=== PATIENT | male | born 1985 | race African-American/Black ===

== ENCOUNTER 2022-06-04 20:23 | Emergency (ER) | payer BC, MEDICAID, SELFPAY ==
[2022-06-04] VITALS (27 sets, daily range): BP systolic 100–132; BP diastolic 62–76; PULSE 110–124; RESP 14–16; TEMP 36.4; O2SAT 98–100
--- NOTE | ~2022-06-04 | XR_ITS ---
Left Shoulder Technique: AP and scapular Y views were obtained. Clinical History: Pain Findings: No fracture or dislocation is seen. Osseous alignment is anatomic. The glenohumeral and acr omioclavicular joint spaces are preserved. Soft tissues are unremarkable. Impression: Unremarkable left shoulder radiographs. Reviewed, dictated and finalized at [facility]. Impression: Unremarkable left shoulder radiographs.
--- NOTE | ~2022-06-04 | XR_ITS ---
Left Humerus Technique: AP and lateral views were obtained. Clinical History: Pain Findings: No fracture or dislocation is seen. Osseous alignment is anatomic. Visualized joint spaces are grossly preserved. Soft tissues are unremarkable. Impression: Unremarkable examination. No fracture or dislocation. Reviewed, dictated and finalized at location . Impression: Unremarkable examination. No fracture or dislocation.
--- NOTE | ~2022-06-04 | XR_ITS ---
Left elbow Technique: AP, oblique, and lateral views were obtained. Clinical History: Pain Findings: No acute fracture or dislocation is seen. Osseous alignment is anatomic. Joint spaces are p reserved. There is no displacement of the fat pads, and soft tissues are unremarkable. Impression: Unremarkable radiographs. Reviewed, dictated and finalized at location . Impression: Unremarkable radiographs.
--- NOTE | 2022-06-04 21:53 | PC.NURSE ---
Rapid response call activated at 2049 while patient was in x-ray room 4. This RN arrived to call at 2051. Patient had been assessed and returned to triage by ED staff.
[2022-06-04] MEDS: SODIUM CHLORIDE 0.9% IV 1,000 ML 999 ML IV CONT (21:54)
[2022-06-04] MEDS: KETOROLAC 30 MG/ML VIAL (*BKC) 15 MG IM (21:55)
[2022-06-04] MEDS: HYDROmorphone HCL INJ (*CRX) 1 MG/ML SYR 0.5 MG IV PUSH (21:55)
[2022-06-04 22:07] LABS: Basophils Absolute Auto 0.1 K/mm3 (0.0-0.1); Basophils Percent Auto 0.8 % (0.2-1.2); Eosinophils Percent Auto 0.1 % (0-4.4); Hematocrit 31.4 % (42.0-52.0); Hemoglobin 11.5 g/dL (14.0-18.0); Immature Granulocyte Absolute 0.03 K/mm3 (0.00-0.031); Immature Granulocyte Percent A 0.4 % (0-0.5); Lymphocytes Absolute Auto 1.75 K/mm3 (0.9-3.2); Lymphocytes Percent Auto 23.1 % (18.3-44.2); Mean Corpuscular HGB Conc 36.6 g/dl (32-36); Mean Corpuscular Hemoglobin 36.5 pg (26-34); Mean Corpuscular Volume 99.7 fl (80-100); Mean Platelet Volume 9.5 fl (7.4-10.4); Monocytes Absolute Auto 0.9 K/mm3 (0.1-0.6); Monocytes Percent Auto 11.4 % (2.6-8.5); Neutrophils Absolute Auto 4.9 K/mm3 (1.3-6.7); Neutrophils Percent Auto 64.2 % (45.5-73.1); Platelet Count Result 199 k/mm3 (150-375); Red Blood Count 3.15 M/mm3 (4.6-6.20); Red Cell Distribution Width 11.8 % (11.5-14.5); White Blood Count 7.6 K/mm3 (4.5-10.0)
[2022-06-04 22:23] LABS: Prothrombin Time 12.9 Seconds (11.1-14.7)
[2022-06-04 22:24] LABS: Partial Thromboplastin Time 28.9 SECONDS (22.3-36.8)
[2022-06-04 22:35] LABS: Anion Gap 13 mmol/L (8-16); Blood Urea Nitrogen 10 mg/dL (9-20); Calcium 8.6 mg/dL (8.4-10.2); Carbon Dioxide 26 mmol/L (22-30); Chloride 95 mmol/L (98-107); Estimated CRCL calculation 91 ml/min; Estimated Glomerular Filt Rate > 60; Glucose 122 mg/dL (65-110); Potassium 2.8 mmol/L (3.4-5.0); Sodium 134 mmol/L (137-145)
[2022-06-05] VITALS (42 sets, daily range): BP systolic 102–131; BP diastolic 55–93; PULSE 94–99; RESP 16–18; O2SAT 99–100
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
[2022-06-05] MEDS: SODIUM CHLORIDE 0.9% IV 2,000 ML 999 ML IV CONT (04:25)
[2022-06-05] MEDS: POTASSIUM CHLORIDE 20 MEQ TABLET 80 MEQ PO (04:28)
[2022-06-05] MEDS: HYDROcodone/acetaminophen (*CRX) 5-325 MG TABLET 2 TAB PO (04:32)
[2022-06-05 04:56] LABS: Creatine Kinase 1324 U/L (55-170)
== END 2022-06-05 06:12 | disposition home or self-care (01) ==
PROVIDERS: Emergency Provider Emergency Medicine
DX: S40.022A Contusion of left upper arm, initial encounter (principal); S50.12XA Contusion of left forearm, initial encounter; Y00.XXXA Assault by blunt object, initial encounter
CPT/HCPCS: 36415; 73030; 73060; 73080; 80048; 82550; 85025; 85610; 85730; 96361; 96372; 96374; 99284; A4565; A9270; J1170; J1885; J7030

== ENCOUNTER 2024-03-18 08:47 | Emergency (ER) | payer OTHER, SELFPAY ==
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
[2024-03-18 08:50] VITALS: BP 160/103; PULSE 102; RESP 18; TEMP 36.4; O2SAT 97
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
[2024-03-18 11:34] VITALS: BP 148/101; PULSE 91; RESP 16; TEMP 37.1; O2SAT 100
[2024-03-18] MEDS: CYCLOBENZAPRINE HCL 10 MG TABLET PO (11:41)
[2024-03-18] MEDS: IBUPROFEN 400 MG TABLET 800 MG PO (11:41)
[2024-03-18] MEDS: LIDOCAINE 5% PATCH 1 PATCH TRANSDERM (11:56)
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
== END 2024-03-18 12:12 | disposition home or self-care (01) ==
PROVIDERS: Emergency Provider Physician Assistant
DX: S16.1XXA Strain of muscle, fascia and tendon at neck level, initial encounter (principal); S29.019A Strain of muscle and tendon of unspecified wall of thorax, initial encounter; S40.011A Contusion of right shoulder, initial encounter; V43.62XA Car passenger injured in collision with other type car in traffic accident, initial encounter
CPT/HCPCS: 71046; 72125; 72128; 73030; 99284; A9270